=== PATIENT | female | born 1955 | race Caucasian/White ===

== ENCOUNTER 2020-10-18 13:13 | Emergency (ER) | payer OTHER ==
[~2020-10-18] VITALS: Ht 160 cm; Wt 52.1 kg
--- NOTE | 2020-10-18 13:55 | NUR ---
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
[2020-10-18] MEDS ORDERED: OXYcodone/APAP 5/325MG TABLET ONE ×2 (14:29→16:45)
[2020-10-18] MEDS ORDERED: KETOROLAC 30 MG/1 ML ONE (14:29)
[2020-10-18] MEDS ORDERED: OXYcodone/APAP 5/325MG TABLET PO ONE ×2 (14:30→17:00)
[2020-10-18] MEDS ORDERED: KETOROLAC 30 MG/1 ML IM ONE (14:30)
--- NOTE | 2020-10-18 14:40 | NUR ---
PATIENT MEDICATED PER eMAR, NADN, FRIEND AT BEDSIDE, CALL LIGHT WITHIN REACH, NO FURTHER NEEDS AT THIS TIME.
--- NOTE | 2020-10-18 15:42 | NUR ---
PATIENT SITTING IN RJ LU, FRIEND AT BEDSIDE, PATIENT REQUESTING MORE PAIN MEDICINE, ERMD NOTIFIED, CALL LIGHT WITHIN REACH. WAITING FOR CT SCAN.
--- NOTE | 2020-10-18 16:07 | NUR ---
SPOKE WITH TAMI IN CT ABOUT MAXOFACIAL CT THAT WAS ORDERED ON PATIENT AT 1417. PATIENT IS NEXT TO BE SCANNED.
--- NOTE | 2020-10-18 16:23 | NUR ---
PATIENT TO CT SCAN.
--- NOTE | 2020-10-18 16:40 | NUR ---
Break RN: patient returned from CT. Admin pain meds per jun.
[2020-10-18 17:31] VITALS: BP 128/63
--- NOTE | 2020-10-18 17:32 | NUR ---
Patient given discharge instructions and prescription and they have confirmed that they understand the instructions. Patient ambulatory with steady gait with friend at side. NAD, all questions answered appropriately, denies additional needs at this time. No personal belongings left in room after discharge.
== END 2020-10-18 17:33 | disposition home or self-care (01) ==
LOC: ED 17:25
DX: S02.632A Fracture of coronoid process of left mandible, initial encounter for closed fracture (principal); V43.53XA Car driver injured in collision with pick-up truck in traffic accident, initial encounter; Y93.89 Activity, other specified; Y92.410 Unspecified street and highway as the place of occurrence of the external cause; Y99.8 Other external cause status
CPT/HCPCS: 70486; 96372; 99284; J1885